=== PATIENT | female | born 1940 | race Caucasian/White ===

== ENCOUNTER → 2017-08-31 | Day surgery (SDC) | payer MEDICARE, OTHER ==
[~2017-08-31] VITALS: Ht 171.4 cm; Wt 96.2 kg
[~2017-08-31] MED LIST: ACETAMINOPHEN 1000 MG/100 ML 100 ML IV ONE; ACETAMINOPHEN/HYDROcodone 325 MG/5 MG TAB PO PRN; ATOR40TA16 PO; BETAMETHASONE SOD PHOS/ACETATE SUSP 30 MG/5 ML VIAL ONE; BUPIVACAINE/EPINEPHRINE 0.5% PF 30 ML VIAL ONE; CALCIUM WITH D PO; CELE20TA PO; CHLORHEXIDINE GLUCONATE 2 % 1 PACK (2 CLOTHS) TOPICAL PRN; CLEO300C2 PO; DARV PO; DEXAMETHASONE SOD PHOS 4 MG/ML VIAL IV ONE; DO NOT ADM ANY ANTICOAGULANT DRUGS PRN; ESTR.3 PO; GABA100C4 PO; GELATIN 12 MM/7 MM FOAM ONE; GENTAMICIN SULFATE 80 MG/2 ML VIAL ONE; GLYCOPYRROLATE 1 MG/5 ML SYRINGE IV PUSH ONE; HYDR-2768 PO; IBUP200C PO; KETOROLAC TROMETHAMINE 30 MG/ML (IVP) VIAL IV PUSH ONE; LACTATED RINGER'S 1000 ML INJ 1,000 ML IV ONE; LACTATED RINGER'S 1000 ML IV PRN; LEVA250T14 PO; LEVO75TA42 PO; LIDOCAINE HCL 1% PF 5 ML SYRINGE OTHER ONE; MEDR4PAK3 PO; METOPROLOL TARTRATE 25 MG TAB PO PRN; MORPHINE SULFATE 2 MG/ML INJ IV PUSH PRN; NEOSTIGMINE 5 MG/5 ML SYRINGE IV PUSH ONE; NORC5TAB PO; OMEP20CA5 PO; ONDANSETRON HCL 4 MG/2 ML VIAL IV ONE; PHENYLEPH/NS 1000 MCG/10 ML SYR IV ONE; PHENYLEPHRINE HCL 10 MG/ML VIAL IV ONE; POVIDONE IODINE 5% (ANTISEPSIS KIT) 4 APPLICATIONS EACH NARE PRN; PRED1 PO; PROPOFOL 200 MG/20 ML AMP IV ONE; Post-op Orders (for Pharmacy) XX ONE; QUEN12.5 PO; ROCURONIUM INJ 50 MG/5 ML SYRINGE IV PUSH ONE; SODIUM CHLOR 0.9% 250 ML INJ 250 ML IV ONE; SODIUM CHLORID 0.9% 500 ML IV PRN; SODIUM CHLORIDE 0.9% FLUSH 10 ML FLUSH IV FLUSH PRN; SODIUM CHLORIDE 0.9% FLUSH 10 ML FLUSH IV FLUSH SCH; VANCOMYCIN HCL 1000 MG VIAL ONE; ceFAZolin 2 GM PREMIX 50 ML IV SCH; ceFAZolin INJ 1,000 MG VIAL IV ONE; ePHEDrine/NS 25 MG/5 ML SYRINGE IV ONE
[2017-08-31 08:13] LABS: BASOPHIL # 0.1 TH/MM3 (0-0.2); BASOPHIL % 0.9 % (0.0-2.0); EOSINOPHIL # 0.2 TH/MM3 (0-0.4); EOSINOPHIL % 2.7 % (0.0-4.0); HEMATOCRIT 42.2 % (35.0-46.0); HEMOGLOBIN 14.8 GM/DL (11.6-15.3); LYMPH % 25.7 % (9.0-44.0); LYMPHOCYTE # 1.6 TH/MM3 (1.0-4.8); MEAN CELL VOLUME 89.9 FL (80.0-100.0); MEAN CORPUSCULAR HEMOGLOBIN 31.4 PG (27.0-34.0); MEAN CORPUSCULAR HGB CONC 34.9 % (32.0-36.0); MEAN PLATELET VOLUME 10.4 FL (7.0-11.0); MONO % 7.5 % (0.0-8.0); MONOCYTE # 0.5 TH/MM3 (0-0.9); NEUT % 63.2 % (16.0-70.0); PLATELET COUNT 160 TH/MM3 (150-450); RED CELL DISTRIBUTION WIDTH 14.2 % (11.6-17.2); WHITE BLOOD COUNT 6.4 TH/MM3 (4.0-11.0)
[2017-08-31 08:20] LABS: PROTHROMBIN TIME - PATIENT 10.2 SEC (9.8-11.6)
[2017-08-31 08:27] LABS: BICARBONATE 26.7 MEQ/L (21.0-32.0); CALCIUM 8.9 MG/DL (8.5-10.1); CREATININE 0.98 MG/DL (0.50-1.00)
--- NOTE | 2017-08-31 14:04 | HHI.PR ---
cc: Pam Salgado MD Immediate Post Op Note Procedure Date: Aug 31, 2017 Pre Op Diagnosis: L4-L5 disc herniation with radiculopathy L4-L5 spinal stenosis Post Op Diagnosis: same Surgeon: Pam Salgado Engineer Booster And Exhauster(s): none Procedure: L4-L5 laminectomy with discectomy Findings: Severe spinal stenosis L4-L5 Left paracentral disc herniation L4-L5 Complications: none Specimen(s) removed: none Estimated blood loss: 100cc Anesthesia: General Drains: None IVF Patient to: PACU Patient Condition: Good Date/Time of Procedure: SEE SURGICAL CARE RECORD Pam Salgado MD Aug 31, 2017 14:04
--- NOTE | 2017-08-31 15:15 | RADRPT ---
EXAM DATE/TIME: 08/31/2017 10:38 [place] COMPARISON: None. INDICATIONS : <<L4-L5 mini-laminectomy. Level localization.>> MEDICAL HISTORY : None. SURGICAL HISTORY : None. ENCOUNTER: Initial ACUITY: 1 day PAIN SCORE: Non-responsive. LOCATION: Lumbar spine. FINDINGS: A single lateral view of the lumbar spine was performed. Needle overlies posterior elements at L4-5. Minimal anterolisthesis at L4-5. CONCLUSION: 1. Level localization as above. Almas Castellanos MD on August 31, 2017 at 15:12 Board Certified Radiologist. This report was verified electronically.
[2017-08-31 15:48] VITALS: BP 143/85; PULSE 70; RESP 18; TEMP 97.4; O2SAT 96
--- NOTE | 2017-08-31 19:13 | EKG ---
Date Performed: 08/31/2017 Time Performed: 08:01:02 PTAGE: 77 years EKG: Sinus rhythm WITH SINUS ARRHYTHMIA WITH FIRST DEGREE AV BLOCK ABNORMAL ECG PREVIOUS TRACING : 12/14/2007 13.09 Since the previous tracing, no significant change noted DOCTOR: Tamara Pat Interpretating Date/Time 08/31/2017 19:13:06
--- NOTE | 2017-09-14 16:36 | PD.OP ---
cc: Pam Salgado MD Operative Report Date of Surgery: Aug 31, 2017 Preoperative Diagnosis: L4-L5 disc herniation with radiculopathy L4-L5 spinal stenosis Postoperative Diagnosis: same Procedure: L4-L5 laminectomy with discectomy Anesthesia: General Surgeon: Pam Salgado Senior Process Engineer(s): none Operation and Findings: EBL: 100 cc Complications: None Specimens: None Indications for procedure: Patient is a 77-year-old female who presented to my partners office, Dr. Miguel Moore, with significant left lower extremity radiculopathy and weakness. After an MRI was obtained, patient presented to my office. MRI demonstrated significant baseline central stenosis at L4 5 with a left-sided paracentral disc herniation causing severe central stenosis and compression on the descending nerve roots. Options of management including nonoperative management versus operative intervention were discussed with the patient. Given she had quite a bit of L5 and S1 left-sided weakness, surgical intervention was offered. I discussed the option of a left L4 5 hemilaminectomy with possible right L4 5 hemilaminectomy. Risks of surgery including but not limited to: Infection, neurologic injury including possible weakness and or paralysis, recurrent disc herniation, spinal fluid leak, adjacent segment disease, possible instability, need for further surgery, and other unforeseen complications were all discussed with the patient. At this time she did consent to the procedure. Description of procedure: The patient was brought back to the operating room. Gen. anesthesia then ensued. The patient was then placed prone on the operating room table with all bony prominences well-padded. The patient was prepped and draped in standard sterile fashion. A timeout was performed to identify the correct patient, location, and procedure to be performed. Preoperative antibiotics were given prior to incision. The level was identified with fluoroscopy and a central midline incision was made through the skin and subcutaneous tissue. The paraspinals were elevated off the lamina on the left side and deep retractors placed. The interlaminar space at L4-L5 was identified and verified with fluoroscopy. A left-sided hemilaminectomy was performed with the use of high-speed bur and Kerrison. An attempt was made to elevate the ligamentum, however, the central stenosis was so severe along with significant hypertrophy of the ligamentum that I was unable to do this. At this time I made the decision to do a central decompression to allow mobilization of the spinal sac safely. This was completed with a high-speed bur and Leksell rongeur. Once the dorsal lamina was thinned, Kerrisons and Leksell's were utilized to remove the remaining lamina and to free the hypertrophied ligamentum. The central decompression was then widened, including partial medial facetectomies and foraminotomies bilaterally, with the use of Kerrisons and curettes to allow identification of the exiting, L4, and traversing, L5 nerves, bilaterally. Subarticular decompression and foraminotomies were performed to allow easy passage of the Mittie into both L4 and L5 foramens bilaterally. At this time, a nerve root retractor was placed to mobilize the thecal sac away from the left side to allow exposure of the disc herniation at L4-5. Hemostasis was achieved of the epidural vessels. An annulotomy was made into the disc. This then allowed the use of pituitaries to remove the herniated disc material. Once this was performed, the L4 and L5 nerve roots appeared to be free of compression. Irrigation was performed into the disc space to ensure there were no loose fragments. Again, hemostasis was achieved. The wound was thoroughly irrigated with normal saline laden with gentamicin. A small piece of Gelfoam laden with a Celestone was then placed over the L5 exposed nerve root. The fascia was then closed with deep #1 Vicryl. The subcutaneous tissue was closed with 3-0 Vicryl and the skin closed with nylon. A sterile dressing was placed. Patient was then placed back onto stretcher and awoken from general anesthesia without complication. It should be noted the patient remained hemodynamically stable throughout the procedure. Disposition: Patient will be mobilized today with plan for discharge from postoperative unit Pam Salgado MD Sep 14, 2017 16:36
== END | disposition home or self-care (01) ==
LOC: HSDC 07:26
PROVIDERS: ATTEND Orthopaedic Surgery Orthopaedic Surgery of the Spine
DX: M51.16 Intervertebral disc disorders with radiculopathy, lumbar region (principal); M48.061 Spinal stenosis, lumbar region without neurogenic claudication; I10 Essential (primary) hypertension
CPT/HCPCS: 00630; 63030; 72020; 76000; 80048; 85025; 85610; 85730; 93005; J0131; J0690; J0702; J1100; J1580; J1885; J2370; J2405; J2710; J3010; J3370; J7050; J7120